=== PATIENT | female | born 1945 | race African-American/Black ===

== ENCOUNTER → 2021-09-01 | Outpatient (CLI) | payer MEDICARE ==
--- NOTE | 2021-09-01 16:36 | KCIC ---
US DPLX CAROTID BILAT History: Cerebrovascular accident. COMPARISON: None Technique: Duplex sonography of the cervical portion of both carotid arteries was performed. Real-caden e grayscale, color flow Doppler, and Doppler spectral waveform analysis is performed. PQRS Compliance Statement - Stenosis calculations for CT, MR and conventional angiography are based u nalini measurement of the distal ICA diameter in accordance with the NASCET methodology. Stenosis calcu lations for carotid ultrasound studies are derived from validated velocity criteria which are known t o correlate with the NASCET methodology. Findings: Right side: Peak systolic flow velocity of the distal CCA is 83 cm/sec. Peak systolic flow velocity of the ICA is 97 cm/sec. The ICA/CCA ratio is 1.2. Peak end diastolic flow velocity of the ICA is 22 cm/sec. The peak systolic velocity of the ECA is 48 cm/sec. No significant plaque formation is identified. Left side: Peak systolic flow velocity of the distal CCA is 80 cm/sec. Peak systolic flow velocity of the ICA is 83 cm/sec. The ICA/CCA ratio is 1.0. Peak end diastolic flow velocity of the ICA is 20 cm/sec. Peak systolic flow velocity of the ECA is 81 cm/sec. No significant plaque formation is identified. Vertebral arteries: Bilateral vertebral arteries demonstrate antegrade flow. IMPRESSION: 1. No hemodynamically significant internal carotid artery stenosis. Electronically signed by: Taj Salinas MD (09/01/2021 4:34 PM) [id number]
--- NOTE | 2021-09-01 17:14 | KCIC ---
DXA BONE DENSITY AXIAL History: Osteoporosis Comparison: None. TECHNIQUE: Dual energy x-ray absorptiometry of the lumbar spine and left hip was performed. T-score o f average bone mineral density based was calculated based on standard deviations above or below the e xpected young adult normal value. Diagnostic definitions were established by the [employer] at[employer]. FINDINGS: The average bone mineral density associated with L1-L4 is 0.792 g/cm^2, corresponding with a T-score of -2.3. The average total bone mineral density associated with left hip is 0.716 g/cm^2, corresponding with a T-score of -1.8. Refer to the worksheets for full detail. IMPRESSION: 1. Osteopenia. Average bone mineral density yields a T-score between -1.0 and -2.5. Fracture risk is increased. Electronically signed by: Taj Salinas MD (09/01/2021 5:11 PM) [id number]
== END ==
LOC: KCIC US 12:50
PROVIDERS: ATTEND Internal Medicine
DX: M85.89 Other specified disorders of bone density and structure, multiple sites (principal); I69.359 Hemiplegia and hemiparesis following cerebral infarction affecting unspecified side; R09.89 Other specified symptoms and signs involving the circulatory and respiratory systems
CPT/HCPCS: 77080; 93880